=== PATIENT | female | born 1985 | race Caucasian/White ===

== ENCOUNTER → 2018-01-01 | Outpatient (CLI) | payer OTHER ==
[2018-01-01] VITALS (25 sets, daily range): BP systolic 80–123; BP diastolic 44–84
--- NOTE | 2018-01-02 08:30 | CARD ---
[address] [address] CARDIAC CATH REPORT Name: JOSEMANOJSagar Castellon Room: [facility]#: [id number] Admission: 01/01/18 Attend Phys: NISSA Menard Discharge: Date of : 85 Report #: [id number] THIS REPORT FOR: //name// CC: Chuy Temple DATE OF SERVICE: 01/01/2018 TILT TABLE TEST REFERRING PROVIDER: NISSA Mayes INDICATION: Near syncope. PROCEDURE DESCRIPTION: After informed consent was obtained, the patient was brought to the cardiac holding area. Initial vital signs were obtained. The patient was then strapped to the tilt table using the designated cuffs. A supine blood pressure was obtained and the table tilted to a 70-degree head upright position. Blood pressure and heart rate as well as oxygen saturations were monitored every 2 minutes for 20 minutes. The patient remained stable. Twenty minutes into the study, the patient was given 0.4 mg of nitroglycerin sublingually. The patient had significant drop in blood pressure at this time with a concurrent drop in pulse rate. The patient became syncopal approximately 4 minutes after being given sublingual nitroglycerin. The table was returned to the supine position. The patient regained consciousness and vital signs gradually stabilized. The patient's blood pressure initially in the standing position was 115/72 mmHg with a pulse rate of 93 beats per minute. The patient's pulse rate and blood pressure remained relatively stable for the first 20 minutes of the tilt table test. At the completion of the initial phase, the patient's blood pressure was 117/81 beats per minute with a heart rate of 101 beats per minute. At this time, 0.4 mg of sublingual nitroglycerin was administered. At 1 minute post-sublingual nitroglycerin, the patient's blood pressure was noted to be 102/66 mmHg with a pulse rate of 112 beats per minute. One minute later, the patient's blood pressure fell to 103/76 mmHg with a pulse rate of 76 beats per minute. The patient's blood pressure further declined to 83/44 mmHg with a decline in pulse rate to 54 beats per minute at which point the patient became syncopal. The patient was returned to supine position and her blood pressure gradually improved. At the completion of the 20-minute post-nitroglycerin phase, the patient's blood pressure was 100/44 mmHg with a pulse rate of 83 beats per minute. IMPRESSION: Positive tilt table test with findings consistent [place] [address] CARDIAC CATH REPORT Name: RUSSELL GARCIA Ravinder Room: [facility]#: [id number] Admission: 01/01/18 Attend Phys: NISSA Menard Discharge: Date of : 85 Report #: [id number] RECOMMENDATIONS: 1. The patient instructed on maintaining adequate volume status and avoiding dehydration. 2. Consider further consultation if the patient's symptoms persist. <ELECTRONICALLY SIGNED> By: Marcello Townsend MD, FACC 01/02/18 0830 1813 2002Michaerolf Townsend MD, FACC /nt
== END | disposition home or self-care (01) ==
LOC: M.CL 11:11
DX: R55 Syncope and collapse (principal); E03.9 Hypothyroidism, unspecified; G43.109 Migraine with aura, not intractable, without status migrainosus; Z98.890 Other specified postprocedural states; Z83.3 Family history of diabetes mellitus; Z82.3 Family history of stroke; Z82.49 Family history of ischemic heart disease and other diseases of the circulatory system; Z79.899 Other long term (current) drug therapy

== ENCOUNTER → 2021-05-02 | Outpatient (CLI) | payer OTHER | LOC: M.ULTRA 07:25 | PROVIDERS: ATTEND Family Medicine | DX: R14.0 Abdominal distension (gaseous) (principal) ==